=== PATIENT | male | born 1960 | race Two or more races ===

== ENCOUNTER 2017-08-19 01:56 | Emergency (ER) | payer MEDICAID ==
[~2017-08-19] VITALS: Ht 170.2 cm; Wt 83.9 kg
--- NOTE | 2017-08-19 02:00 | NUR ---
TO BED 2 BIB PARAMEDICS C/O SOB, DX WITH BRONCHITIS X 4 DAYS AGO. NEB TX MANUFACTURING TECH BY EMS. PT AAOX4 NO ACUTE DISTRESS NOTED, RESP EVEN AND UNLABORED. WHEEZING HEARD BILATERALLY ON AUSCULTATION. PLACE PT ON CARDIAC MONITORING, CONTINUOUS POX. ER MD AT BEDSIDE TO EVAL PT WITH ORDERS RECEIVED. WILL CARRY OUT ORDERS.
--- NOTE | 2017-08-19 02:05 | NUR ---
RT AT BEDSIDE TO GIVE HHN TX.
[2017-08-19] MEDS: ALBUTEROL FS 2.5 MG/3 ML VIAL.NEB CONTNEB ONE ×2 (02:07→02:09)
[2017-08-19] MEDS: IPRATROPIUM NEB FS 0.5 MG/2.5 ML AMPUL.NEB NEB ONE ×2 (02:07→02:09)
[2017-08-19] MEDS: ALBUTEROL FS 2.5 MG/3 ML VIAL.NEB NEB ONE ×2 (02:07→02:09)
[2017-08-19] MEDS ORDERED: ALBUTEROL FS 2.5 MG/3 ML VIAL.NEB ONE (02:09)
[2017-08-19] MEDS ORDERED: IPRATROPIUM NEB FS 0.5 MG/2.5 ML AMPUL.NEB ONE (02:09)
[2017-08-19] MEDS ORDERED: DEXAMETHASONE SOD PHOSPHATE 10 MG/ML VIAL IV ONE (02:30)
[2017-08-19] MEDS ORDERED: ACETAMINOPHEN 325 MG TABLET PO ONE (03:30)
[2017-08-19] MEDS ORDERED: ACETAMINOPHEN ES 500 MG TABLET ONE (03:46)
[2017-08-19] MEDS ORDERED: DEXAMETHASONE SOD PHOSPHATE 10 MG/ML VIAL ONE (03:46)
--- NOTE | 2017-08-19 04:23 | NUR ---
PT RESTING QUIETLY, NO ACUTE DISTRESS NOTED, RESP EVEN AND UNLABORED. PENDING DISPOSITION.
[2017-08-19] MEDS ORDERED: DOXYCYCLINE HYCLATE (100 MG) 100 MG TABLET ONE (04:45)
--- NOTE | 2017-08-19 04:50 | NUR ---
IV removed. Catheter intact and site benign. Pressure and 4x4 applied to site. No bleeding noted. Patient discharged to home in stable condition. Written and verbal after care instructions given. Patient verbalizes understanding of instruction. ambulatory with a steady gait noted. pt aaox4 no acute distress noted, resp even and unlabored.
[2017-08-19 04:52] VITALS: BP 133/72
[2017-08-19] MEDS ORDERED: DOXYCYCLINE HYCLATE (100 MG) 100 MG TABLET PO ONE (05:00)
== END 2017-08-19 04:53 | disposition home or self-care (01) ==
LOC: ER 01:59
DX: J44.1 Chronic obstructive pulmonary disease with (acute) exacerbation (principal); F17.200 Nicotine dependence, unspecified, uncomplicated
CPT/HCPCS: 94644; 99285; A4606; J1100; Z7610